=== PATIENT | female | born 1950 | race Caucasian/White ===

== ENCOUNTER 2016-02-26 12:06 | Outpatient (CLI) | payer BC | END 2016-02-26 12:07 | disposition home or self-care (01) | DX: D68.9 Coagulation defect, unspecified (principal) ==

== ENCOUNTER 2016-02-28 09:10 | Outpatient (CLI) | payer BC | END 2016-02-28 09:11 | disposition home or self-care (01) | DX: D68.9 Coagulation defect, unspecified (principal) ==

== ENCOUNTER 2016-03-02 10:30 | Outpatient (CLI) | payer BC | END 2016-03-02 10:31 | disposition home or self-care (01) | DX: D68.9 Coagulation defect, unspecified (principal) ==

== ENCOUNTER 2016-03-09 12:54 | Outpatient (CLI) | payer BC | END 2016-03-09 12:55 | disposition home or self-care (01) | DX: D68.9 Coagulation defect, unspecified (principal) ==

== ENCOUNTER 2016-03-19 10:26 | Outpatient (CLI) | payer BC | END 2016-03-19 10:27 | disposition home or self-care (01) | DX: D68.9 Coagulation defect, unspecified (principal) ==

== ENCOUNTER 2016-03-22 15:17 | Outpatient (CLI) | payer BC | END 2016-03-22 15:18 | disposition home or self-care (01) | DX: D68.9 Coagulation defect, unspecified (principal) ==

== ENCOUNTER 2016-03-30 14:13 | Outpatient (CLI) | payer BC | END 2016-03-30 14:14 | disposition home or self-care (01) | DX: D68.9 Coagulation defect, unspecified (principal) ==

== ENCOUNTER 2016-04-05 13:49 | Outpatient (CLI) | payer BC | END 2016-04-05 13:50 | disposition home or self-care (01) | DX: D68.9 Coagulation defect, unspecified (principal) ==

== ENCOUNTER 2016-04-18 14:38 | Outpatient (CLI) | payer BC | END 2016-04-18 14:39 | disposition home or self-care (01) | DX: D68.9 Coagulation defect, unspecified (principal) ==

== ENCOUNTER 2016-04-25 14:03 | Outpatient (CLI) | payer BC | END 2016-04-25 14:04 | disposition home or self-care (01) | DX: D68.9 Coagulation defect, unspecified (principal) ==

== ENCOUNTER 2016-04-30 15:06 | Outpatient (CLI) | payer BC | END 2016-04-30 15:07 | disposition home or self-care (01) | DX: D68.9 Coagulation defect, unspecified (principal) ==

== ENCOUNTER 2016-05-07 14:22 | Outpatient (CLI) | payer BC | END 2016-05-07 14:23 | disposition home or self-care (01) | DX: D68.9 Coagulation defect, unspecified (principal) ==

== ENCOUNTER 2016-05-21 15:16 | Outpatient (CLI) | payer BC | END 2016-05-21 15:17 | disposition home or self-care (01) | DX: D68.9 Coagulation defect, unspecified (principal) ==

== ENCOUNTER 2016-06-04 13:16 | Outpatient (CLI) | payer BC | END 2016-06-04 13:17 | disposition home or self-care (01) | DX: D68.9 Coagulation defect, unspecified (principal) ==

== ENCOUNTER 2016-06-20 10:06 | Outpatient (CLI) | payer BC | END 2016-06-20 10:07 | disposition home or self-care (01) | DX: Z12.31 Encounter for screening mammogram for malignant neoplasm of breast (principal) ==

== ENCOUNTER 2016-07-03 15:27 | Outpatient (CLI) | payer MEDICARE, BC | END 2016-07-03 15:28 | disposition home or self-care (01) | DX: D68.9 Coagulation defect, unspecified (principal) ==

== ENCOUNTER 2016-10-11 17:38 | Outpatient (CLI) | payer MEDICARE, BC ==
--- NOTE | 2016-10-12 10:51 | XRAY Report ---
THREE VIEW RIGHT ELBOW: 10/11/2016 CLINICAL INDICATION: Pain, decreased range of motion. FINDINGS: AP, lateral, and oblique views of the right elbow demonstrate no evidence of fracture or d islocation. The joint spaces are preserved. No effusion is present. IMPRESSION: NORMAL RIGHT ELBOW. JOB #: [id number] EXT JOB #:[id number]
== END 2016-10-11 17:39 | disposition home or self-care (01) ==
LOC: DI 17:38
PROVIDERS: ATTEND Physician Assistant
DX: M25.521 Pain in right elbow (principal)

== ENCOUNTER 2016-12-03 14:33 | Outpatient (CLI) | payer MEDICARE, BC | END 2016-12-03 14:34 | disposition home or self-care (01) | LOC: SC 14:33 | PROVIDERS: ATTEND Internal Medicine Pulmonary Disease | DX: G47.33 Obstructive sleep apnea (adult) (pediatric) (principal) | CPT/HCPCS: 99203; G0463; 99212 ==

== ENCOUNTER 2017-05-09 20:27 | Outpatient (CLI) | payer MEDICARE, OTHER | END 2017-05-09 20:28 | disposition home or self-care (01) | LOC: SC 20:27 | PROVIDERS: ATTEND Internal Medicine Pulmonary Disease | DX: G47.61 Periodic limb movement disorder (principal) | CPT/HCPCS: 95810 ==

== ENCOUNTER 2017-05-23 11:04 | Outpatient (CLI) | payer MEDICARE, OTHER | END 2017-05-23 11:05 | disposition home or self-care (01) | LOC: SC 11:04 | PROVIDERS: ATTEND Nurse Practitioner Family | DX: G47.61 Periodic limb movement disorder (principal); R06.83 Snoring | CPT/HCPCS: 99214; G0463; 99212 ==

== ENCOUNTER 2017-06-24 09:30 | Outpatient (CLI) | payer MEDICARE, OTHER ==
--- NOTE | 2017-06-25 15:15 | Mammography Report ---
DIGITAL SCREENING MAMMOGRAM: 06/24/2017 CLINICAL INDICATION: A 66-year-old nulliparous patient with family history of breast cancer for screening. COMPARISON: 05/2016, 05/2015, 04/2014, 04/2013, 01/2012, 01/2010. TECHNIQUE: Routine CC and MLO projections were obtained of the breasts. FINDINGS: Scattered fibroglandular tissue is present within the breasts. There are no dominant masses, suspicious microcalcifications, or secondary signs of malignancy. In comparison to the previous studies, there are no significant changes. IMPRESSION: NO MAMMOGRAPHIC EVIDENCE OF MALIGNANCY. NO SIGNIFICANT INTERVAL CHANGES. RECOMMENDATION: Screening mammography is recommended annually. BIRADS CATEGORY 1 - NEGATIVE. STANDARD QUALIFYING STATEMENTS: 1. This examination was reviewed with the aid of Computed-Aided Detection (CAD). 2. A negative or benign imaging report should not delay biopsy if clinically suspicious findings are present. Consider surgical consultation if warranted. More than 5% of cancers are not identified by imaging. 3. Dense breasts may obscure an underlying neoplasm. TD: 06/25/2017 15:15
== END 2017-06-24 09:31 | disposition home or self-care (01) ==
LOC: DI.S 09:30
PROVIDERS: ATTEND Physician Assistant
DX: Z12.31 Encounter for screening mammogram for malignant neoplasm of breast (principal); Z80.3 Family history of malignant neoplasm of breast
CPT/HCPCS: 77067

== ENCOUNTER 2017-06-26 11:28 | Outpatient (CLI) | payer MEDICARE, OTHER | END 2017-06-26 11:29 | disposition home or self-care (01) | LOC: SC 11:28 | PROVIDERS: ATTEND Nurse Practitioner Family | DX: G47.61 Periodic limb movement disorder (principal); R06.83 Snoring | CPT/HCPCS: 99214; G0463; 99212 ==

== ENCOUNTER 2017-08-19 14:21 | Outpatient (CLI) | payer MEDICARE, OTHER | END 2017-08-19 14:22 | disposition home or self-care (01) | LOC: SC 14:21 | PROVIDERS: ATTEND Nurse Practitioner Family | DX: G47.33 Obstructive sleep apnea (adult) (pediatric) (principal) | CPT/HCPCS: 99214; G0463; 99212 ==

== ENCOUNTER 2017-08-20 09:29 | Outpatient (CLI) | payer MEDICARE, OTHER ==
--- NOTE | 2017-08-20 12:42 | Ultrasound Report ---
Procedure Date: 08/20/2017 Accession Number: [id number] / [id number] Procedure: US - Duplex Ext Veins Bilateral CPT Code: FULL RESULT: EXAM: Duplex Ext Veins Bilateral DATE: 08/20/2017 11:30 AM CLINICAL HISTORY: BILAT LOWER EXT PAIN,WEAKNESS. H/O RT ILIOFEMORAL DISSECTION COMPARISON: 10/16/2006 TECHNIQUE: Real-time sonographic vascular imaging was performed by the sandwich hand through the lower extremities utilizing both color-flow and Doppler spectral analysis. Multiple retail sales representative static images were saved for review. FINDINGS: Right: Common Femoral Vein (CFV): Normal. [Profunda Femoral Vein (PFV): Normal. Superficial Femoral Vein (SFV) Prox: Normal. Superficial Femoral Vein (SFV) Mid: Normal. Superficial Femoral Vein (SFV) Dist: Normal. Popliteal Vein: Normal. Posterior Tibial Veins: Normal. Peroneal Veins: Normal. Left: Common Femoral Vein (CFV): Normal. [Profunda Femoral Vein (PFV): Normal. Superficial Femoral Vein (SFV) Prox: Normal. Superficial Femoral Vein (SFV) Mid: Normal. Superficial Femoral Vein: (SFV) Dist: Normal. Popliteal Vein: Normal. Posterior Tibial Veins: Normal. Peroneal Veins: Normal. Other: None. IMPRESSION: Normal. No evidence for deep venous thrombosis bilaterally. RADIA
--- NOTE | 2017-08-22 19:06 | Ultrasound Report ---
Procedure Date: 08/20/2017 Accession Number: [id number] / [id number] Procedure: US - Duplex Lwr Ext Arterial Bilat CPT Code: FULL RESULT: EXAM: BILATERAL LOWER EXTREMITY ARTERIAL DOPPLER ULTRASOUND EXAM DATE: 08/20/2017 10:06 AM. CLINICAL HISTORY: Bilateral lower extremity pain, weakness. history of right iliofemoral dissection January 2016. 67-year-old female. CAD, hypertension and hyperlipidemia. COMPARISON: None. TECHNIQUE: Real-time sonographic vascular imaging was performed by the outpatient admitting clerk, utilizing color-flow, Doppler flow, and spectral analysis. Multiple sales support representative static images were saved for review. FINDINGS: Right Lower Extremity: Proximal common femoral artery 54 cm/s. COMPUTER SYSTEMS SECURITY ADMINISTRATOR: PSV 185 cm/sec, waveform monophasic. PSFA: PSV 40 cm/sec, waveform monophasic. MSFA: PSV 41 cm/sec, waveform monophasic. DSFA: PSV 39 cm/sec, waveform monophasic. PFA: PSV 21 cm/sec, waveform monophasic. POP: PSV 21 cm/sec, waveform monophasic. KLAUS: PSV 28 cm/sec, waveform biphasic. SUPERVISOR PIPELINES: PSV 33 cm/sec, waveform biphasic. CASANDRA: PSV 21 cm/sec, waveform monophasic. DPA: PSV 8 cm/sec, waveform monophasic. Left Lower Extremity: Proximal left common femoral artery 123 cm/s. COMPUTER SYSTEMS SECURITY ADMINISTRATOR: PSV 185 cm/sec, waveform triphasic. PSFA: PSV 75 cm/sec, waveform triphasic. MSFA: PSV 70 cm/sec, waveform triphasic. DSFA: PSV 66 cm/sec, waveform triphasic. PFA: PSV 63 cm/sec, waveform triphasic. POP: PSV 53 cm/sec, waveform triphasic. KLAUS: PSV 62 cm/sec, waveform triphasic. SUPERVISOR PIPELINES: PSV 59 cm/sec, waveform triphasic CASANDRA: PSV 46 cm/sec, waveform triphasic. DPA: PSV 66 cm/sec, waveform triphasic. IMPRESSION: Greater than 50% stenosis proximal right common femoral artery. Correlate with resting ankle brachial indices. RADIA
== END 2017-08-20 09:30 | disposition home or self-care (01) ==
LOC: DI 09:29
PROVIDERS: ATTEND Physician Assistant
DX: M79.605 Pain in left leg (principal); M79.604 Pain in right leg; I25.10 Atherosclerotic heart disease of native coronary artery without angina pectoris; I10 Essential (primary) hypertension; E78.5 Hyperlipidemia, unspecified
CPT/HCPCS: 93925; 93970

== ENCOUNTER 2018-02-24 10:45 | Outpatient (CLI) | payer MEDICARE, OTHER | END 2018-02-24 10:46 | disposition home or self-care (01) | LOC: SC 10:45 | PROVIDERS: ATTEND Nurse Practitioner Family | DX: G47.33 Obstructive sleep apnea (adult) (pediatric) (principal) | CPT/HCPCS: 99214; G0463; 99212 ==

== ENCOUNTER 2018-05-03 19:30 | Outpatient (CLI) | payer MEDICARE, OTHER | END 2018-05-03 23:59 | LOC: SC 19:30 | PROVIDERS: ATTEND Internal Medicine Pulmonary Disease | DX: G47.33 Obstructive sleep apnea (adult) (pediatric) (principal) | CPT/HCPCS: G0399 ×2; 95806 ==

== ENCOUNTER 2018-06-09 13:22 | Outpatient (CLI) | payer MEDICARE, OTHER | END 2018-06-09 13:23 | disposition home or self-care (01) | LOC: SC 13:22 | PROVIDERS: ATTEND Internal Medicine Pulmonary Disease | DX: G47.33 Obstructive sleep apnea (adult) (pediatric) (principal) | CPT/HCPCS: 99212; G0463 ==

== ENCOUNTER 2018-06-19 09:05 | Outpatient (CLI) | payer MEDICARE, OTHER ==
--- NOTE | 2018-06-19 11:10 | Ultrasound Report ---
Reason: UNSPECIFIED ABDOMINAL PAIN,PAIN IN LEFT LEG Procedure Date: 06/19/2018 Accession Number: [id number] / [id number] Procedure: US - Duplex Ext Veins Left CPT Code: FULL RESULT: EXAM: LEFT LOWER EXTREMITY VENOUS ULTRASOUND EXAM DATE: 06/19/2018 10:58 AM. CLINICAL HISTORY: Unspecified abdominal pain, pain in left leg. COMPARISON: None. TECHNIQUE: Real-time sonographic vascular imaging was performed by the child care assistant through the lower extremity utilizing both color-flow and Doppler spectral analysis. Multiple guest service representative static images were saved for review. FINDINGS: Common Femoral Vein (CFV): Normal. CFV-GSV Junction: Normal. Profunda Femoral Vein (PFV): Normal. Femoral Vein (FV) Prox: Normal. Femoral Vein (FV) Mid: Normal. Femoral Vein (FV) Dist: Normal. Popliteal Vein: Normal. Posterior Tibial Veins: Normal. Peroneal Veins: Normal. Contralateral Side CFV: Normal. Other: None. IMPRESSION: No evidence for deep venous thrombosis. RADIA
--- NOTE | 2018-06-19 11:19 | CT Report ---
Reason: UNSPECIFIED ABDOMINAL PAIN,PAIN IN LEFT LEG Procedure Date: 06/19/2018 Accession Number: [id number] / [id number] Procedure: CT - Abdomen/Pelvis WO CPT Code: FULL RESULT: EXAM: CT ABDOMEN AND PELVIS (CT KUB) EXAM DATE: 06/19/2018 09:35 AM. CLINICAL HISTORY: Unspecified abdominal pain, pain in left leg. COMPARISONS: None. TECHNIQUE: Routine axial helical CT imaging was performed through the abdomen and pelvis without IV contrast. Reconstructions: Coronal and sagittal. In accordance with CT protocol optimization, one or more of the following dose reduction techniques were utilized for this exam: automated exposure control, adjustment of mA and/or KV based on patient size, or use of iterative reconstructive technique. FINDINGS: Lung Bases: Median sternotomy changes and coronary calcifications are partially imaged. The patient is status post cholecystectomy. The noncontrast liver, spleen, adrenal glands, kidneys and pancreas are unremarkable. There is no bowel obstruction. There is no free fluid or free air. There is no intraperitoneal or retroperitoneal lymphadenopathy. The aortic bifurcation is high and there is tortuosity of the iliac vessels, both of which are prominent in caliber, 1.6 cm on the right and 2.0 cm on the left. Noncontrast appearance of the pelvic organs is unremarkable aside from distal sigmoid diverticulosis and a left ovarian cyst, 2.5 cm. IMPRESSION: Prominent and tortuous iliac vessels as described, limited evaluation. Diverticulosis and left ovarian cyst. RADIA
== END 2018-06-19 09:06 | disposition home or self-care (01) ==
LOC: DI 09:05
PROVIDERS: ATTEND Physician Assistant
DX: R10.9 Unspecified abdominal pain (principal); K57.30 Diverticulosis of large intestine without perforation or abscess without bleeding; N83.202 Unspecified ovarian cyst, left side; I77.1 Stricture of artery; M79.605 Pain in left leg
CPT/HCPCS: 74176

== ENCOUNTER 2018-09-08 13:12 | Outpatient (CLI) | payer MEDICARE, OTHER ==
--- NOTE | 2018-09-08 15:35 | Mammography Report ---
Reason: SCREENING MAMMO Procedure Date: 09/08/2018 Accession Number: [id number] / [id number] Procedure: LE - Screening Mammo w/Gallo CPT Code: FULL RESULT: EXAM: Screening Mammo w/Gallo DATE: 09/08/2018 1:50 PM CLINICAL HISTORY: Screening examination. History of nulliparity. Family history of breast cancer in the mother at age 35. TECHNIQUE: (B) - Bilateral CC and MLO views were obtained. COMPARISON: 06/24/2017 through 05/13/2013. PARENCHYMAL PATTERN: (A) - The breast(s) demonstrate(s) scattered fibroglandular densities. FINDINGS: There are no suspicious masses, calcifications, or areas of distortion. IMPRESSION: Negative examination. BI-RADS category 1. RECOMMENDATION: (ANNUAL) - Recommend routine annual screening mammography. BI-RADS CATEGORY: (1) - Negative. STANDARD QUALIFYING STATEMENTS: 1. This examination was not reviewed with the aid of Computer-Aided Detection (CAD). 2. A negative or benign imaging report should not preclude biopsy if clinically suspicious findings are present. 3. Dense breasts may obscure an underlying neoplasm. 4. This examination was reviewed with the aid of 3D breast imaging (tomosynthesis).
== END 2018-09-08 13:13 | disposition home or self-care (01) ==
LOC: DI 13:12
DX: Z12.31 Encounter for screening mammogram for malignant neoplasm of breast (principal); Z80.3 Family history of malignant neoplasm of breast
CPT/HCPCS: 77063; 77067

== ENCOUNTER 2018-12-17 10:49 | Outpatient (CLI) | payer MEDICARE, OTHER ==
--- NOTE | 2018-12-18 12:00 | DEXA Report ---
Reason: POSTMENOPAUSAL STATE Procedure Date: 12/17/2018 Accession Number: [id number] / [id number] Procedure: DEX - Dexa Spine and/or Hip CPT Code: FULL RESULT: EXAM: Dexa Spine and/or Hip DATE: 12/17/2018 11:24 AM CLINICAL HISTORY: POSTMENOPAUSAL STATE. Personal history of osteopenia. TECHNIQUE: Dual energy x-ray absorptiometry (DXA) was performed on a Klood System. Regions measured are the AP Spine, femoral neck, and if needed forearm. COMPARISON: 02/08/2009. In accordance with the International Society for Clinical Densitometry (ISCD) guidelines, data from previous exams may be reanalyzed using current recommendations and techniques. This is done to allow a more accurate basis for comparison with the current study. FINDINGS: The data for the lumbar spine is as follows: BMD (g/cm/cm) T-SCORE Z-SCORE REGION L1 0.878 -2.1 -1.6 L2 0.988 -1.8 -1.3 L3 1.056 -1.2 -0.7 L4 1.261 0.5 1.0 TOTAL 1.060 -1.0 -0.5 NOTE: All evaluable vertebrae are used for classification The data for the hip is as follows: BMD (g/cm/cm) T-SCORE Z-SCORE REGION Neck 0.850 -1.4 -0.5 TOTAL 0.911 -0.8 -0.3 NOTE: The femoral neck or total proximal femur, whichever is lowest, is used for classification. IMPRESSION: THE WHO CLASSIFICATION BASED ON THE INTERNATIONAL REFERENCE STANDARD IS OSTEOPENIA. THE FRACTURE RISK IS INCREASED. RECOMMENDATION: Patients with diagnosis of osteoporosis or osteopenia should have regular bone mineral density assessment. For those eligible for Medicare, routine testing is allowed once every 2 years. Testing frequency can be increased for patients who have rapidly progressing disease or for those who are receiving medical therapy to restore bone mass. COMMENT: World Health Organization (WHO) definitions for osteoporosis and osteopenia: NORMAL BMD: T-score at -1.0 or higher, fracture risk is low OSTEOPENIA BMD: T-score between -1.0 and -2.5, fracture risk is increased. OSTEOPOROSIS BMD: T-score at -2.5 or lower, fracture risk is high. National Osteoporosis Foundation recommends: 1. Obtain adequate dietary calcium (at least 1200 mg per day) and vitamin D (400-800 international units per day). 2. Participate, as appropriate, in regular weightbearing and muscle-strengthening exercise. 3. Avoid tobacco use and reduce alcohol and caffeine intake. 4. For more detailed information see the website at www.NOF.org.
== END 2018-12-17 10:50 | disposition home or self-care (01) ==
LOC: DI 10:49
PROVIDERS: ATTEND Physician Assistant
DX: M85.89 Other specified disorders of bone density and structure, multiple sites (principal)
CPT/HCPCS: 77080

== ENCOUNTER 2019-11-11 14:43 | Outpatient (CLI) | payer MEDICARE, OTHER ==
--- NOTE | 2019-11-11 17:01 | XRAY Report ---
PROCEDURE: Chest 2 View X-Ray INDICATIONS: HEART FAILURE, UNSPECIFIED TECHNIQUE: 2 view(s) of the chest. COMPARISON: Chest x-ray 08/26/2015 FINDINGS: Surgical changes and devices: None. Lungs and pleura: No pleural effusions or pneumothorax. Mild appearance of increased pulmonary vascu larity. Mediastinum: Mediastinal contours are normal. Heart size is enlarged. Bones and chest wall: No suspicious bony abnormalities. Soft tissues appear unremarkable. IMPRESSION: Cardiomegaly with increased vascularity suggestive of edema. Reviewed by: Robyn Bueno MD on 11/11/2019 4:59 PM PDT Approved by: Robyn Bueno MD on 11/11/2019 4:59 PM PDT Station ID: [id number]
== END 2019-11-11 14:44 | disposition home or self-care (01) ==
LOC: DI.S 14:43
PROVIDERS: ATTEND Registered Nurse
DX: I51.7 Cardiomegaly (principal)
CPT/HCPCS: 71046

== ENCOUNTER 2019-11-15 12:21 | Outpatient (CLI) | payer MEDICARE, OTHER ==
--- NOTE | 2019-11-18 08:15 | Mammography Report ---
BILATERAL DIGITAL SCREENING MAMMOGRAM 3D/2D: 11/15/2019 CLINICAL: Routine screening. Family history of breast cancer. Comparison is made to exams dated: 08/29/2018 mammogram, 06/24/2017 mammogram, 06/20/2016 mammogram, 05/26 mammogram, and 05/06/2014 mammogram - [facility]. There are scattered fibrog landular elements in both breasts. No significant masses, calcifications, or other findings are seen in either breast. There has been no significant interval change. IMPRESSION: NEGATIVE There is no mammographic evidence of malignancy. A 1 year screening mammogram is recommended. This exam was interpreted at Station ID: [id number]. NOTE: For mammograms, a report in lay terms will be sent to the patient. Approximately 15% of breast malignancies will not be visualized mammographically. In the management of a palpable breast mass, a negative mammogram must not discourage biopsy of a clinically suspicious lesion. Electronically Signed By: Petr read/angi:11/16/2019 17:02:27 ACR BI-RADS Category 1: Negative 3341F PARENCHYMAL PATTERN: (A) - The breast(s) demonstrate(s) scattered fibroglandular densities. BI-RADS CATEGORY: (1) - 1 RECOMMENDATION: (ANNUAL) - Recommend routine annual screening mammography. [id number] 1 year screening LATERALITY: (B)
== END 2019-11-15 12:22 | disposition home or self-care (01) ==
LOC: DI 12:21
DX: Z12.31 Encounter for screening mammogram for malignant neoplasm of breast (principal); Z80.3 Family history of malignant neoplasm of breast
CPT/HCPCS: 77063; 77067

== ENCOUNTER 2020-10-07 10:36 | Outpatient (CLI) | payer MEDICARE, OTHER ==
[2020-10-07 14:58] LABS: ALBUMIN 4.4 g/dL (3.2-5.5); BILIRUBIN,DIRECT 0.1 mg/dL (0.1-0.5); BILIRUBIN,TOTAL 0.7 mg/dL (0.2-1.0); TOTAL PROTEIN 7.2 g/dL (6.7-8.2)
== END 2020-10-07 10:37 | disposition home or self-care (01) ==
LOC: LAB.S 10:36
PROVIDERS: ATTEND Registered Nurse
DX: R74.8 Abnormal levels of other serum enzymes (principal); E55.9 Vitamin D deficiency, unspecified
CPT/HCPCS: 36415; 80076; 82306

== ENCOUNTER 2020-12-05 11:05 | Outpatient (CLI) | payer MEDICARE, OTHER ==
--- NOTE | 2020-12-06 08:45 | Mammography Report ---
BILATERAL DIGITAL SCREENING MAMMOGRAM 3D/2D: 12/05/2020 CLINICAL: Family history of breast cancer. Comparison is made to exams dated: 11/15/2019 mammogram, 08/29/2018 mammogram, 06/24/2017 mammogram, 05/27 mammogram, and 06/06/2015 mammogram - [facility]. There are scattered fibrog landular elements in both breasts. No significant masses, calcifications, or other findings are seen in either breast. There has been no significant interval change. IMPRESSION: NEGATIVE There is no mammographic evidence of malignancy. A 1 year screening mammogram is recommended. This exam was interpreted at Station ID: [id number]. NOTE: For mammograms, a report in lay terms will be sent to the patient. Approximately 15% of breast malignancies will not be visualized mammographically. In the management of a palpable breast mass, a negative mammogram must not discourage biopsy of a clinically suspicious lesion. Electronically Signed By: Braden Olmedo acr/penrad:12/05/2020 12:17:30 ACR BI-RADS Category 1: Negative 3341F PARENCHYMAL PATTERN: (A) - The breast(s) demonstrate(s) scattered fibroglandular densities. BI-RADS CATEGORY: (1) - 1 RECOMMENDATION: (ANNUAL) - Recommend routine annual screening mammography. [id number] 1 year screening LATERALITY: (B)
== END 2020-12-05 11:06 | disposition home or self-care (01) ==
LOC: DI.S 11:05
PROVIDERS: ATTEND Registered Nurse
DX: Z12.31 Encounter for screening mammogram for malignant neoplasm of breast (principal); Z80.3 Family history of malignant neoplasm of breast

== ENCOUNTER 2021-08-16 19:02 | Outpatient (CLI) | payer MEDICARE, OTHER ==
--- NOTE | 2021-08-16 20:02 | Ultrasound Report ---
PROCEDURE: Duplex Ext Veins Right INDICATIONS: PAIN IN RIGHT LOWER LIMB TECHNIQUE: Real-time imaging, as well as color and pulse Doppler interrogation, were performed of the lower extr emity deep veins from the inguinal ligament to the popliteal fossa. COMPARISON: None. FINDINGS: The deep veins are normally compressible, and free of intraluminal thrombus. Color and pu lse Doppler demonstrate normal phasic intraluminal flow. There is normal augmentation response to di stal compression maneuver. There is a loculated fluid collection in the popliteal fossa medially likely representing a [place]'s c yst, measuring up 7.8 x 1.9 x 6.5 cm. IMPRESSION: 1. No evidence of deep venous thrombosis in the right lower extremity. Reviewed by: Matt Rizvi MD on 08/16/2021 8:00 PM PDT Approved by: Matt Rizvi MD on 08/16/2021 8:00 PM PDT Station ID: [id number]
== END 2021-08-16 19:03 | disposition home or self-care (01) ==
LOC: DI 19:02
PROVIDERS: ATTEND Registered Nurse
DX: M79.604 Pain in right leg (principal)

== ENCOUNTER 2021-08-18 15:52 | Outpatient (CLI) | payer MEDICARE, OTHER ==
--- NOTE | 2021-08-18 18:00 | XRAY Report ---
PROCEDURE: Knee 3 View RT INDICATIONS: PIN IN RIGHT LOWER LMB TECHNIQUE: 3 views of the right knee(s) were acquired. COMPARISON: None. FINDINGS: Bones: No acute fractures or dislocations. No suspicious bony lesions. Moderate tricompartmental d egenerative changes of the right knee with large marginal osteophytes most pronounced in the lateral patellofemoral compartment and lateral femorotibial compartment. Soft tissues: No joint effusion. No suspicious soft tissue calcifications. IMPRESSION: Right knee without acute fracture or dislocation. Moderate tricompartmental degenerative changes of the right knee. Reviewed by: Giancarlo Tellez MD on 08/18/2021 5:59 PM PDT Approved by: Giancarlo Tellez MD on 08/18/2021 5:59 PM PDT Station ID: [id number]
== END 2021-08-18 15:53 | disposition home or self-care (01) ==
LOC: DI.S 15:52
PROVIDERS: ATTEND Registered Nurse
DX: M17.11 Unilateral primary osteoarthritis, right knee (principal)

== ENCOUNTER 2021-12-06 09:57 | Outpatient (CLI) | payer MEDICARE, OTHER ==
--- NOTE | 2021-12-07 09:49 | Mammography Report ---
BILATERAL DIGITAL SCREENING MAMMOGRAM 3D/2D WITH EXAGGERATED CC: 12/06/2021 CLINICAL: Routine screening. Family history of breast cancer. Comparison is made to exams dated: 12/05/2020 mammogram, 11/15/2019 mammogram, 08/29/2018 mammogram, an d 06/20/2016 mammogram - [facility]. There are scattered areas of fibroglandular density in both breasts (category b / 25%-50% glandular t issue). No significant masses, calcifications, or other findings are seen in either breast. There has been no significant interval change. IMPRESSION: NEGATIVE There is no mammographic evidence of malignancy. A 1 year screening mammogram is recommended. Based on the Tyrer Cuzick model (a risk assessment model) the patients lifetime risk is 9.6% and her 10 year risk is 6.2%. According to the ACR, ACS, and NCCN guidelines, an annual breast MRI exam toni g with mammogram is recommended if the patients lifetime risk is 20% or greater. This exam was interpreted at Station ID: [id number]. NOTE: For mammograms, a report in lay terms will be sent to the patient. Approximately 15% of breast malignancies will not be visualized mammographically. In the management of a palpable breast mass, a negative mammogram must not discourage biopsy of a clinically suspicious lesion. Electronically Signed By: Giancarlo pittman/angi:12/06/2021 17:45:33 ACR BI-RADS Category 1: Negative 3341F PARENCHYMAL PATTERN: (A) - The breast(s) demonstrate(s) scattered fibroglandular densities. BI-RADS CATEGORY: (1) - 1 RECOMMENDATION: (ANNUAL) - Recommend routine annual screening mammography. [id number] 1 year screening LATERALITY: (B)
== END 2021-12-06 09:58 | disposition home or self-care (01) ==
LOC: DI.S 09:57
DX: Z12.31 Encounter for screening mammogram for malignant neoplasm of breast (principal); Z80.3 Family history of malignant neoplasm of breast

== ENCOUNTER 2022-06-28 13:09 | Outpatient (CLI) | payer MEDICARE, OTHER ==
--- NOTE | 2022-06-28 18:16 | XRAY Report ---
PROCEDURE: Chest 2 View X-Ray INDICATIONS: SHORTNESS OF BREATH. TECHNIQUE: 2 views of the chest were acquired. COMPARISON: 11/11/2019 FINDINGS: Surgical changes and devices: Multiple median sternotomy wires. Cardiac valvular device. Lungs and pleura: No pleural effusions or pneumothorax. Diffuse interstitial prominence with mild va scular congestion. Mediastinum: Mediastinal contours appear normal. Heart size is enlarged. Bones and chest wall: No suspicious bony lesions. Overlying soft tissues appear unremarkable. IMPRESSION: Cardiomegaly with findings suggestive of mild/early pulmonary edema/CHF. Reviewed by: Giancarlo Tellez MD on 06/28/2022 6:15 PM PDT Approved by: Giancarlo Tellez MD on 06/28/2022 6:15 PM PDT Station ID: [id number]
[2022-06-28 20:13] LABS: BASOPHILS # (AUTO) 0.1 10^3/uL (0.0-0.1); EOSINOPHILS # (AUTO) 0.1 10^3/uL (0.0-0.7); EOSINOPHILS % (AUTO) 1.8 %; HCT - HEMATOCRIT 41.1 % (37.0-47.0); LYMPHOCYTES # (AUTO) 1.4 10^3/uL (1.5-3.5); LYMPHOCYTES % (AUTO) 27.1 %; MEAN CORPUSCULAR HEMOGLOBIN 29.5 pg (27.0-31.0); MEAN CORPUSCULAR HGB CONC 31.6 g/dL (32.0-36.0); MEAN CORPUSCULAR VOLUME 93.2 fL (81.0-99.0); MONOCYTES # (AUTO) 0.5 10^3/uL (0.0-1.0); MONOCYTES % (AUTO) 10.8 %; NEUTROPHILS % (AUTO) 59.1 %; PLT - PLATELET COUNT 237 10^3/uL (130-450); RED BLOOD COUNT 4.41 10^6/uL (4.20-5.40); RED CELL DISTRIBUTION WIDTH 13.4 % (12.0-15.0)
[2022-06-28 20:23] LABS: ALBUMIN 4.4 g/dL (3.2-5.5); ALBUMIN/GLOBULIN RATIO 1.3 (1.0-2.2); ALKALINE PHOSPHATASE 90 IU/L (42-121); ALT ALANINE AMINOTRANSFERASE 42 IU/L (10-60); AST ASPARTATE AMINOTRANSFERASE 35 IU/L (10-42); BILIRUBIN,TOTAL 0.6 mg/dL (0.2-1.0); BUN - BLOOD UREA NITROGEN 15 mg/dL (6-20); CALCIUM 9.4 mg/dL (8.5-10.3); CARBON DIOXIDE - CO2 29 mmol/L (21-32); CHLORIDE 106 mmol/L (101-111); CHOL/HDL RATIO 4.1 (<4.4); CHOLESTEROL 215 mg/dL; GFR - MDRD 55 (>89); GLUCOSE 105 mg/dL (70-100); HDL CHOLESTEROL 53 mg/dL; LDL CHOLESTEROL,CALCULATED 123 mg/dL; LDL/HDL RATIO 2.3 (<4.4); POTASSIUM 4.1 mmol/L (3.5-5.0); SODIUM 140 mmol/L (135-145); TOTAL PROTEIN 7.8 g/dL (6.7-8.2); TRIGLYCERIDES 196 mg/dL; VLDL CHOLESTEROL 39 mg/dL
[2022-06-28 21:00] LABS: ESTIMATED AVERAGE GLUCOSE 114 mg/dL (70-100); HEMOGLOBIN A1c% 5.6 % (4.27-6.07)
== END 2022-06-28 13:10 | disposition home or self-care (01) ==
LOC: DI.S 13:09
PROVIDERS: ATTEND Nuclear Medicine Nuclear Cardiology
DX: R06.02 Shortness of breath (principal); I05.9 Rheumatic mitral valve disease, unspecified; I11.0 Hypertensive heart disease with heart failure; I50.42 Chronic combined systolic (congestive) and diastolic (congestive) heart failure; I25.10 Atherosclerotic heart disease of native coronary artery without angina pectoris; E78.5 Hyperlipidemia, unspecified; Z13.1 Encounter for screening for diabetes mellitus
CPT/HCPCS: 36415; 80053; 80061; 83036; 83721; 83880; 85025

== ENCOUNTER 2022-07-27 10:24 | Outpatient (CLI) | payer MEDICARE, OTHER ==
[2022-07-27 15:30] LABS: POTASSIUM 3.8 mmol/L (3.5-5.0)
== END 2022-07-27 10:25 | disposition home or self-care (01) ==
LOC: LAB.S 10:24
PROVIDERS: ATTEND Nuclear Medicine Nuclear Cardiology
DX: I50.42 Chronic combined systolic (congestive) and diastolic (congestive) heart failure (principal)
CPT/HCPCS: 36415; 80048; 83880

== ENCOUNTER 2022-11-26 14:56 | Outpatient (CLI) | payer MEDICARE, OTHER ==
--- NOTE | 2022-11-27 13:07 | Mammography Report ---
BILATERAL DIGITAL SCREENING MAMMOGRAM 3D/2D WITH EXAGGERATED CC: 11/26/2022 CLINICAL: Routine screening. Family history of breast cancer. Comparison is made to exams dated: 12/06/2021 mammogram, 12/05/2020 mammogram, 11/15/2019 mammogram, 08/29/2018 mammogram, and 06/24/2017 mammogram - [facility]. There are scattered areas of fibroglandular density in both breasts (category b / 25%-50% glandular t issue). No significant masses, calcifications, or other findings are seen in either breast. There has been no significant interval change. IMPRESSION: NEGATIVE There is no mammographic evidence of malignancy. A 1 year screening mammogram is recommended. Based on the Tyrer Cuzick model (a risk assessment model) the patients lifetime risk is 9.1% and her 10 year risk is 6.3%. According to the ACR, ACS, and NCCN guidelines, an annual breast MRI exam toni g with mammogram is recommended if the patients lifetime risk is 20% or greater. This exam was interpreted at Station ID: [id number]. NOTE: For mammograms, a report in lay terms will be sent to the patient. Approximately 15% of breast malignancies will not be visualized mammographically. In the management of a palpable breast mass, a negative mammogram must not discourage biopsy of a clinically suspicious lesion. Electronically Signed By: Braden ty/angi:11/27/2022 09:42:24 letter sent: No_Letter ACR BI-RADS Category 1: Negative 3341F PARENCHYMAL PATTERN: (A) - The breast(s) demonstrate(s) scattered fibroglandular densities. BI-RADS CATEGORY: (1) - 1 Mammogram [id number] 1 year screening LATERALITY: (B)
== END 2022-11-26 14:57 | disposition home or self-care (01) ==
LOC: DI.S 14:56
PROVIDERS: ATTEND Registered Nurse
DX: Z12.31 Encounter for screening mammogram for malignant neoplasm of breast (principal); Z80.3 Family history of malignant neoplasm of breast

== ENCOUNTER 2023-08-01 15:11 | Outpatient (CLI) | payer MEDICARE, OTHER ==
--- NOTE | 2023-08-01 18:26 | XRAY Report ---
PROCEDURE: Lumbar Spine 2-3V INDICATIONS: XRAY TECHNIQUE: 2 views of the lumbar spine were acquired. COMPARISON: None. FINDINGS: Surgical change: Remote posterior decompression at L4-L5.. Bones: 5 exu-duu-xgyafzj vertebrae are present. There is normal bony alignment. No vertebral body co mpression fractures. No suspicious bony lesions. Multilevel degenerative disc space loss. Lower lumb ar facet arthropathy. Soft tissues: Overlying bowel gas pattern is normal. No suspicious soft tissue calcifications. IMPRESSION: Lumbar degenerative change. No acute bony abnormality. Reviewed by: Javad Perez MD on 08/01/2023 6:24 PM PDT Approved by: Javad Perez MD on 08/01/2023 6:24 PM PDT Station ID: [id number]
--- NOTE | 2023-08-01 18:28 | XRAY Report ---
PROCEDURE: Hip w/Pelvis 2-3V LT INDICATIONS: XRAY TECHNIQUE: An AP view the pelvis and a frog-leg lateral view of the left hip were acquired. COMPARISON: Lumbar spine plain films from the same date. FINDINGS: Bones: No fractures or dislocations. No suspicious bony lesions. Mild bilateral hip degenerative ch omid. Soft tissues: No suspicious soft tissue calcifications or masses. IMPRESSION: No acute bony abnormality. Mild bilateral hip degenerative change. Reviewed by: Javad Perez MD on 08/01/2023 6:26 PM PDT Approved by: Javad Perze MD on 08/01/2023 6:26 PM PDT Station ID: [id number]
== END 2023-08-01 15:12 | disposition home or self-care (01) ==
LOC: DI.S 15:11
PROVIDERS: ATTEND Registered Nurse
DX: M16.0 Bilateral primary osteoarthritis of hip (principal); M47.26 Other spondylosis with radiculopathy, lumbar region